=== PATIENT | male | born 1995 | race American Indian/Alaskan Native ===

== ENCOUNTER 2019-01-27 08:49 | Emergency (ER) | payer BC ==
[2019-01-27 09:06] VITALS: BP 119/73; PULSE 66; RESP 18; TEMP 97.6; O2SAT 98
--- NOTE | 2019-01-27 10:05 | ED PDOC ---
Arrival/HPI - General Chief Complaint: ENT Problem Time Seen by Provider: 01/27/19 09:05 Historian: Patient - History of Present Illness Narrative History of Present Illness (Text): 01/27/19 10:29 24 y/o male with no significant PMH presents to the ED c/o left ear pain and sore throat x 1 week. Associated sinus congestion. Has not taken any medication for his symptoms. No recent travel or sick contacts. Denies fever, chills, c ough, hearing loss, nausea, vomiting, abdominal pain, headache, dizziness, neck pain/stiffness, visual changes, ear discharge, photophobia, eye pain, or any other associated symptoms. Past Medical History - Provider Review Nursing Documentation Reviewed: Yes - Psychiatric Hx Substance Use: No Family/Social History - Physician Review Nursing Documentation Reviewed: Yes Family/Social History: No Known Family HX Smoking Status: Light Smoker < 10 Cigarettes Daily Hx Alcohol Use: No Hx Substance Use: No Allergies/Home Meds Allergies/Adverse Reactions: Allergies No Known Allergies Allergy (Verified 01/27/19 09:06) Review of Systems - Review of Systems Constitutional: Normal. absent: Fevers Eyes: Normal. absent: Vision Changes, Photophobia, Eye Pain ENT: Sore Throat, Sinus Congestion, Other (Ear Pain) Respiratory: absent: SOB, Cough Cardiovascular: Normal. absent: Chest Pain, Palpitations, Syncope Gastrointestinal: Normal. absent: Abdominal Pain, Stool Changes, Diarrhea, Nausea, Vomiting, Appetite Changes Musculoskeletal: Normal. absent: Back Pain, Neck Pain Skin: Normal. absent: Rash Neurological: Normal. absent: Headache, Dizziness Physical Exam Vital Signs Reviewed: Yes Vital Signs Temp Pulse Resp BP Pulse Ox 01/27/19 09:04 97.6 F 66 18 119/73 98 Temperature: Afebrile Blood Pressure: Normal Pulse: Regular Respiratory Rate: Normal Appearance: Positive for: Well-Appearing, Non-Toxic, Comfortable Pain Distress: None Mental Status: Positive for: Alert and Oriented X 3 - Systems Exam Head: Present: Atraumatic, Normocephalic Pupils: Present: PERRL Extroacular Muscles: Present: EOMI Conjunctiva: Present: Normal Ears: Present: NORMAL TM (Right), Normal Canal (Bilaterally), Fluid (Serous, behind left TM). No: Erythema, TM Bulging, Other (NO mastoid tenderness or bogginess) Mouth: Present: Moist Mucous Membranes Neck: Present: Normal Range of Motion. No: Meningeal Signs Respiratory/Chest: Present: Clear to Auscultation, Good Air Exchange. No: Respiratory Distress, Accessory Muscle Use Cardiovascular: Present: Regular Rate and Rhythm, Normal S1, S2, Peripheal Pulses Present Upper Extremity: Present: Normal Inspection, Normal ROM, NORMAL PULSES Lower Extremity: Present: Normal ROM Neurological: Present: GCS=15, Speech Normal, Motor Func Grossly Intact, Normal Sensory Function, Gait Normal Skin: Present: Warm, Dry, Normal Color. No: Rashes Psychiatric: Present: Alert, Oriented x 3, Normal Insight, Normal Concentration Medical Decision Making ED Course and Treatment: Initial Plan: * Rapid strep Rapid strep negative Symptoms consistent with post nasal drip and eustachian tube dysfunction secondary to seasonal allergies. Advised PMD and ENT followup. Diagnostic testing results and plan of care discussed with patient. Strict instructions given regarding prescription use, importance of followup, and signs/symptoms to return to ER including worsening pain, hearing loss, dizziness, neck pain/stiffness, or any other new/worsening symptoms. Pt verbalized understanding of discussion. Patient is A&Ox3, ambulating with steady gait, with vital signs stable for discharge. - Lab Interpretations Lab Results: Lab Results 01/27/19 09:40: Grp A Beta Strep Ag Negative I have reviewed the lab results: Yes Disposition/Present on Arrival - Present on Arrival Any Indicators Present on Arrival: No History of DVT/PE: No History of Uncontrolled Diabetes: No Urinary Catheter: No History of Decub. Ulcer: No History Surgical Site Infection Following: None - Disposition Have Diagnosis and Disposition been Completed?: Yes Diagnosis: Seasonal allergies, Ear pain Disposition: HOME/ ROUTINE Disposition Time: 10:02 Patient Plan: Discharge Patient Problems: Current Active Problems Problem Status Onset Seasonal allergies Acute Ear pain Acute Condition: STABLE Discharge Instructions (ExitCare): Seasonal Allergies (DC), Eustachian Tube Problems (DC) Additional Instructions: Flonase 2 sprays in each nostril daily Zyrtec-D twice daily as needed Followup with primary doctor within 2 days Followup with ears, nose, throat doctor for persistent pain Return to ER with any new/worsening symptoms Prescriptions: Cetirizine HCl/Pseudoephedrine [Zyrtec-D Tablet] 1 each PO Q12H #14 tab Fluticasone Propionate [Flonase] 2 spr NS DAILY #1 bottle Referrals: Pearl Ortiz MD [Medical Doctor] - Follow up with primary [facility] at [facility] [Outside] - Follow up with primary Cruz Huerta DO [Staff Provider] - Follow up with primary Forms: [employer] (Greek), WORK NOTE
== END 2019-01-27 10:23 | disposition home or self-care (01) ==
LOC: ED 08:49
DX: J30.2 Other seasonal allergic rhinitis (principal); H92.02 Otalgia, left ear; F17.210 Nicotine dependence, cigarettes, uncomplicated